=== PATIENT | female | born 1955 | race Caucasian/White ===

== ENCOUNTER 2021-04-04 10:44 | Emergency (ER) | payer BC, SELFPAY ==
--- NOTE | ~2021-04-04 | XR_ITS ---
EXAMINATION: XR ankle RT min 3V EXAM DATE: 04/04/2021 11:19 INDICATION: rolled ankle this morning/lateral pain. Initial encounter. TECHNIQUE: Right ankle frontal, lateral and oblique projections obtained and reviewed. There is no p rior study for comparison. FINDINGS: The right ankle mortise appears intact. There are no acute fractures or dislocations iden tified. There is no subcutaneous gas. The soft tissue is unremarkable. There are no radiopaque fo reign bodies. IMPRESSION: No acute osseous findings. Reviewed, dictated and finalized at location B. [employer] IMPRESSION: No acute osseous findings.
[2021-04-04 11:08] VITALS: BP 163/88; PULSE 86; RESP 18; TEMP 37; O2SAT 100
--- NOTE | 2021-04-04 12:17 | ED.LOWEXIN ---
HPI - Extremity Injury (Lower) General Chief Complaint: Extremity Injury, Lower Stated Complaint: Rt ankle paind due to fall Time Seen by Provider: 04/04/21 12:17 Source: patient Mode of arrival: ambulatory Limitations: no limitations History of Present Illness HPI Narrative: Marley Babb is a 65 yo female with no PMH [facility] ankle during playing pickle ball this morning her right ankle is mildly swollen on the lateral side with small amount of ecchymosis and she has difficulty walking on it without pain. Related Data Allergies Allergy/AdvReac Type Severity Reaction Status Date / Time Penicillins Allergy Unknown Verified 01/02/19 14:01 Review of Systems Review of Systems: CONSTITUTIONAL: Denies fever, chills, sweats. EYES: Denies visual changes, redness, discharge. ENT: Denies rhinorrhea, congestion, sore throat, otalgia. CARDIOVASCULAR: Denies chest pain, palpitations, edema. RESPIRATORY: Denies dyspnea, wheezing, cough GASTROINTESTINAL: Denies abdominal pain, nausea, vomiting, diarrhea. GENITOURINARY: Denies dysuria, hematuria, abnormal discharge SKIN: Denies rash or itching. NEUROLOGIC: Denies numbness, or focal weakness. PSYCHIATRIC: Denies anxiety or depression. Right ankle lateral swelling from rolling it playing pickle ball PMFSH Past Medical History Medical History No acute medical problems Family History Family History Other High cholesterol Hypertension Social History Social History (Updated 04/04/21 @ 12:20 by Vidya Mosqueda CNP) Smoking status: Never smoker Alcohol intake: current Comments At time of signature, I agree with nursing past medical, surgical, social and family history. There is no relevant family history pertinent to the presenting complaint. Patient's blood pressure elevated at the time of this visit and referred back to primary care physician to recheck Exam Narrative: GENERAL: This is a well-nourished, well-developed patient, in mild distress. HEAD: normocephalic, atraumatic. EYES: Sclera clear/white. Vision is grossly intact. EARS: External ears normal, auditory canals clear and without drainage, TMs normal without perforation. Hearing grossly intact. NOSE: External nose normal without nasal discharge, nares without redness, no rhinorrhea. THROAT: Mucous membranes moist, NECK: Neck supple, CARDIOVASCULAR: Regular rate and rhythm without murmurs, gallops, or rubs. RESPIRATORY: Clear to auscultation. Breath sounds equal bilaterally. No wheezes, rales, or rhonchi. GASTROINTESTINAL: Abdomen soft, SKIN: warm, intact with no suspicious lesions or rash, good texture and turgor. NEURO: awake, alert, and oriented to person, place and time. There were no obvious focal neurologic abnormalities. Steady gait EXTREMITIES: Normal range of motion left; mild right ankle lateral swelling with mild ecchymosis on the lateral dorsum of right foot pain on varus valgus movement and movement of toes BACK: Nontender without deformity Course Course Emergency Course: Patient rolled ankle while playing pickle ball x-ray of of right ankle shows no acute fracture dislocation no subcutaneous gas, soft tissues unremarkable with no radiopaque foreign bodies Directions on RICE, has ankle brace at home that she can wear, discussed use of ibuprofen 600 mg every 6 hours as needed for pain Vital Signs Vital signs: Vital Signs Temperature 98.6 F 04/04/21 11:08 Pulse Rate 86 04/04/21 11:08 Respiratory Rate 18 04/04/21 11:08 Blood Pressure 163/88 H 04/04/21 11:08 Pulse Oximetry 100 04/04/21 11:08 Temperature 98.6 F 04/04/21 11:08 Pulse Rate 86 04/04/21 11:08 Respiratory Rate 18 04/04/21 11:08 Blood Pressure 163/88 H 04/04/21 11:08 Pulse Oximetry 100 04/04/21 11:08 MDM - Extremity Injury (Lower) Differential Diagnosis Differential
== END 2021-04-04 12:27 | disposition home or self-care (01) ==
PROVIDERS: Emergency Provider Nurse Practitioner; PCP Internal Medicine
DX: S93.401A Sprain of unspecified ligament of right ankle, initial encounter (principal); S96.911A Strain of unspecified muscle and tendon at ankle and foot level, right foot, initial encounter; X50.0XXA Overexertion from strenuous movement or load, initial encounter; Y93.69 Activity, other involving other sports and athletics played as a team or group
CPT/HCPCS: 73610; 99213; G0463

== ENCOUNTER 2022-12-26 10:08 | Emergency (ER) | payer MEDICARE, BC, SELFPAY ==
[2022-12-26 10:31] VITALS: BP 151/76; PULSE 78; RESP 16; TEMP 36.4; O2SAT 100
--- NOTE | 2022-12-26 10:33 | ED.EAR ---
HPI - Ear Problem General Chief complaint: Ear Stated complaint: Lt Ear Irritation Time Seen by Provider: 12/26/22 10:35 Source: patient Mode of arrival: ambulatory Limitations: no limitations History of Present Illness HPI Narrative: Marley is a 66-year-old female patient presenting to the clinic today with complaints of left ear discomfort. She reports she is having lot of pain last night when she was lying on her left side. States she was trying to remove some ear wax last week and may have showed some ear wax further into her ear causing some discomfort. Denies any ear drainage. Related Data Home Medications Medication Instructions Recorded Confirmed conjugated estrogens 0.625 mg/gram 1 applic topical DAILY 12/26/22 12/26/22 vaginal cream (Premarin) lisinopril 5 mg tablet 5 mg PO DAILY 12/26/22 12/26/22 Allergies Allergy/AdvReac Type Severity Reaction Status Date / Time Penicillins AdvReac Mild Hives Verified 12/26/22 10:13 Review of Systems Review of Systems: Pertinent positives per HPI. Patient denies any fever, chills, rash, headache, visual changes, dizziness, cough, shortness of breath, chest pain, palpitations, nausea, vomiting, diarrhea, constipation, abdominal pain, or any urinary issues. PMFSH Past Medical History Medical History No acute medical problems Family History Family History Other High cholesterol Hypertension Social History Social History Smoking status: Never smoker Alcohol intake: current Comments At the time of my signature, I reviewed and agree with the nursing past medical, surgical, social, and family history. There is no relevant family history pertinent to the patient complaint. Exam Narrative: General: Well-developed, well nourished, in no apparent distress Head: Normocephalic, atraumatic Eyes: Pupils equally round and reactive to light bilaterally, EOM intact, sclera and conjunctive clear, no discharge, lids normal Ears: Cerumen impaction to the left ear canal, ear irrigation was performed and cerumen was removed using a lighted curette towards the end of the ear canal, TMs intact and clear, ear canals clear, no drainage, grossly hearing normal. Nose: Nares patent, no discharge, no inflammation, no sinus tenderness. Mouth: Oral pharynx without lesions or masses, good dentition, MMM. Neck: Supple, trachea midline, no enlargement of anterior or posterior cervical nodes, no thyroid masses or goiter palpable. Cardio: Regular rate and rhythm, s1 and s2 normal, no murmur appreciated. Resp: Clear to auscultation bilaterally, no rhonchi, rales, wheezing or rubs Course Course Emergency Course: Portions of this record may have been created with voice recognition software. Level of Care: Express Care Visit Vital Signs Vital signs: Vital Signs Temperature 36.4 C 12/26/22 10:31 Pulse Rate 78 12/26/22 10:31 Respiratory Rate 16 12/26/22 10:31 Blood Pressure 151/76 H 12/26/22 10:31 Pulse Oximetry 100 12/26/22 10:31 Oxygen Delivery Room Air 12/26/22 10:31 Temperature 36.4 C 12/26/22 10:31 Pulse Rate 78 12/26/22 10:31 Respiratory Rate 16 12/26/22 10:31 Blood Pressure 151/76 H 12/26/22 10:31 Pulse Oximetry 100 12/26/22 10:31 Oxygen Delivery Room Air 12/26/22 10:31 Vital signs reviewed Procedures Ear Wax Removal Left Ear: Ear Wax Removal Date: 12/26/22 Cerumenolytic Used: other (Debrox) Results: Re-examined: cerumen removed completely TM Examination: TM(s) intact, normal appearance Ear Canal Exam: atraumatic Patient Tolerated Procedure: well and no complications Complications: no problems Technique: ear canal irrigated and ear canal curetted Additional Comments: Verbal consent
[2022-12-26] MEDS: CARBAMIDE PEROXIDE 6.5% OT SOLN 15 ML BTL 10 DROP LEFT EAR (10:38)
== END 2022-12-26 11:16 | disposition home or self-care (01) ==
PROVIDERS: Emergency Provider Nurse Practitioner Family; PCP Internal Medicine
DX: H61.22 Impacted cerumen, left ear (principal); I10 Essential (primary) hypertension; K21.9 Gastro-esophageal reflux disease without esophagitis
CPT/HCPCS: 69210; 99212; A9270; G0463

== ENCOUNTER 2024-04-24 16:12 | Emergency (ER) | payer MEDICARE, BC, SELFPAY ==
[2024-04-24 16:35] VITALS: BP 140/66; PULSE 68; RESP 16; TEMP 36.3; O2SAT 100
--- NOTE | 2024-04-24 16:58 | ED.EAR ---
HPI - Ear Problem General Chief complaint: Ear Stated complaint: ear pain Time Seen by Provider: 04/24/24 16:58 Source: patient, RN notes reviewed and old records reviewed Mode of arrival: ambulatory Limitations: no limitations History of Present Illness HPI Narrative: patient presents with complaints of left ear fullness that has been present since this afternoon. She denies any injury or trauma. She reports that symptoms began suddenly this afternoon after sneezing. She denies any actual pain. She has not been taken anything for her symptoms. She voices no other concerns or complaints at this time Related Data Home Medications ?Medication ?Instructions ?Recorded ?Confirmed ?Last Taken ?Type conjugated estrogens 0.625 mg/gram 1 applic topical DAILY 12/26/22 12/26/22 Unknown History vaginal cream (Premarin) lisinopril 5 mg tablet 5 mg PO DAILY 12/26/22 12/26/22 Unknown History Allergies Allergy/AdvReac Type Severity Reaction Status Date / Time Penicillins AdvReac Mild Hives Verified 04/24/24 17:07 Review of Systems Review of Systems: All systems reviewed & are unremarkable except as noted in HPI and below Constitutional: Constitutional: Reports no additional constitutional complaints ENT: Reports system reviewed and no additional complaints, except as documented, Reports as per HPI and Reports otalgia Cardiovascular: Cardiovascular: Reports no additional cardiovascular complaints Respiratory: Respiratory: Reports no additional respiratory complaints Gastrointestinal: Gastrointestinal: Reports no additional gastrointestinal complaints [facility] Past Medical History Medical History No acute medical problems Family History Family History Other High cholesterol Hypertension Social History Social History Smoking status: Never smoker Alcohol intake: current Comments At the time of my signature, I reviewed and agree with the nursing past medical, surgical, social, and family history. There is no relevant family history pertinent to the patient complaint. Exam Const: General: cooperative, no acute distress, alert and awake Orientation/consciousness: oriented to person, oriented to place and oriented to time HENMT: Head: normal to inspection Ears: Abnormal EAC present cerumen impaction on the left and unable to visualize TM on the left Resp: Effort & Inspection: normal respiratory effort and able to speak in complete sentences Auscultation: clear to auscultation bilaterally, no crackles, no rales, no rhonchi and no wheezes Cardio: Palpation: normal PMI Rate: regular rate Rhythm: regular rhythm Heart sounds: S1 normal heart sound present and S2 normal heart sound present Neuro: General: oriented to person, oriented to place and oriented to time Cranial nerves: Yes CN's II-XII intact bilaterally Psych: Appearance: grossly normal Thought process: Normal thought process present Insight: Good insight present (Psych) Judgement: Good judgement present (Psych) Course Course Level of Care: Express Care Visit Vital Signs Vital signs: Vital Signs Temperature 97.4 F L 04/24/24 16:35 Pulse Rate 68 04/24/24 16:35 Respiratory Rate 16 04/24/24 16:35 Blood Pressure 140/66 04/24/24 16:35 Pulse Oximetry 100 04/24/24 16:35 Oxygen Delivery Room Air 04/24/24 16:35 Temperature 97.4 F L 04/24/24 16:35 Pulse Rate 68 04/24/24 16:35 Respiratory Rate 16 04/24/24 16:35 Blood Pressure 140/66 04/24/24 16:35 Pulse Oximetry 100 04/24/24 16:35 Oxygen Delivery Room Air 04/24/24 16:35 Reviewed Procedures Ear Wax Removal Left Ear: Ear Wax Removal Date: 04/24/24 Ear Wax Removal Time: 17:20 Cerumenolytic Used: other Results: Re-examined: cerumen removed completely TM Examination: TM(s) intact, normal appearance Ear Canal Exam: atraumatic Patient Tolerated Procedure: well Complications: no problems Technique: ear canal irrigated and ear canal curetted Medical Decision Making MDM Narrative Medical decision making narrative: cerumen impaction nasally removed. Patient tolerated well Discharge instructions reviewed with patient, as well as provided in writing per nursing staff. The instructions also include specific and strict return/GO TO THE ER as well as f/u information. All questions have been answered, and the patient deny any further questions with discharge and discharge plan. Some parts of this dictation were generated by voice recognition software and may contain typographical and/or grammatical inaccuracies. Medical Records Medical records reviewed: Yes I reviewed the external patient's medical records. Vital Signs Vital Signs: Vital Signs Temperature 97.4 F L 04/24/24 16:35 Pulse Rate 68 04/24/24 16:35 Respiratory Rate 16 04/24/24 16:35 Blood Pressure 140/66 04/24/24 16:35 Pulse Oximetry 100 04/24/24 16:35 Oxygen Delivery Room Air 04/24/24 16:35 Temperature 97.4 F L 04/24/24 16:35 Pulse Rate 68 04/24/24 16:35 Respiratory Rate 16 04/24/24 16:35 Blood Pressure 140/66 04/24/24 16:35 Pulse Oximetry 100 04/24/24 16:35 Oxygen Delivery Room Air 04/24/24 16:35 reviewed Lab Data Lab results reviewed: Yes I reviewed the patient's lab results. Lab results narrative: reviewed Discharge Plan Discharge Clinical Impression: Cerumen impaction Qualifiers: Laterality: left Qualified Code(s): H61.22 - Impacted cerumen, left ear Patient Disposition: Home, Self-Care Condition: Stable Instructions: Antibiotic Form Additional Instructions: Feeling of fullness in your left ear should be resolved by later on this evening. In the future, you can prevent ear wax impactions by using Debrox. Follow package instructions Patient Language: Occitan Prescriptions: No Action Premarin 0.625 mg/gram cream 1 applic topical DAILY lisinopril 5 mg tablet 5 mg PO DAILY Follow-up/Referrals: Will,Radha Cole MD [Primary Care Provider] - Time of Disposition: 17:31
== END 2024-04-24 17:34 | disposition home or self-care (01) ==
PROVIDERS: Emergency Provider Nurse Practitioner Family; PCP Internal Medicine
DX: H61.22 Impacted cerumen, left ear (principal)
CPT/HCPCS: 69210; 99212; A9270; G0463

== ENCOUNTER 2025-02-16 09:56 | Emergency (ER) | payer MEDICARE, BC, SELFPAY ==
[2025-02-16 10:00] VITALS: BP 137/63; PULSE 82; RESP 16; TEMP 36.4; O2SAT 100
[2025-02-16 10:31] LABS: EDSTREPNEGPOS1 Negative (Negative)
[2025-02-16 10:54] LABS: EDCOVIDSCREEN Negative (Negative)
--- NOTE | 2025-02-16 11:03 | ED.GENADULT ---
HPI - General Adult General Chief complaint: Upper Respiratory Infection Stated complaint: Sore throat Source: patient Mode of arrival: ambulatory Limitations: no limitations History of Present Illness HPI narrative: Patient presents for evaluation sick symptoms for last 3 days. She reports a runny nose and sinus congestion. She now has a sore throat. No fever, chills, nausea, vomiting diarrhea cough, shortness of breath. No recent sick contacts. She does not smoke. She is not taking any medication [id number] to assist with her symptoms. Related Data Home Medications ?Medication ?Instructions ?Recorded ?Confirmed ?Last Taken ?Type conjugated estrogens 0.625 mg/gram 1 applic topical DAILY 12/26/22 02/16/25 Unknown History vaginal cream (Premarin) lisinopril 5 mg tablet 5 mg PO DAILY 12/26/22 02/16/25 Unknown History rizatriptan 10 mg tablet mg 02/16/25 Unknown History Allergies Allergy/AdvReac Type Severity Reaction Status Date / Time Penicillins AdvReac Mild Hives Verified 02/16/25 10:00 Review of Systems Review of Systems: CONSTITUTIONAL: Denies fever, chills, or sweats. EYES: Denies visual changes, redness, or discharge. ENT: Reports sinus congestion, runny nose and sore throat. Denies otalgia CARDIOVASCULAR: Denies chest pain, palpitations, or edema. RESPIRATORY: Denies cough or dyspnea. GASTROINTESTINAL: Denies abdominal pain, nausea, vomiting, or diarrhea. GENITOURINARY: Denies dysuria or hematuria. SKIN: Denies rash or itching. MUSCULOSKELETAL: Denies back pain, joint pain, or myalgia. NEUROLOGIC: Denies headache, numbness, dizziness, or weakness. PSYCHIATRIC: Denies anxiety or depression. [facility] Past Medical History Medical History No acute medical problems Surgical History Surgical History No pertinent past surgical history Family History Family History Other High cholesterol Hypertension Social History Social History (Reviewed 02/16/25 @ 11:05 by Mayito L.E. Alma, POST TRONIC MACHINE OPERATOR, DATA MIGRATION LEAD) Smoking status: Never smoker Alcohol intake: current Exam Narrative: GENERAL: Well-appearing, well-nourished, and in no acute distress. HEAD: Normocephalic, atraumatic. EYES: PERRLA and EOMI. ENT: Nares clear, no rhinorrhea or epistaxis. Mucous membranes moist. Oropharynx without tonsillar hypertrophy exudate or other lesions. Bilateral TMs pearly harrell nonbulging NECK: Supple. No adenopathy or masses. No carotid bruits or JVD CHEST: Clear to auscultation. No respiratory distress. No wheezes rales or rhonchi HEART: Regular rate and rhythm. No murmur heard. Normal peripheral pulses. ABDOMEN: Soft, nontender, nondistended, normal active bowel sounds. EXTREMITIES: Normal range of motion. No edema. SKIN: Warm, dry, no rash. NEURO: No focal deficits. Alert and oriented x3. PSYCH: Normal mood and affect. Course Course Emergency Course: This is a 69 year old female who presented for evaluation of sick symptoms. Strep and COVID negative. Will send throat culture. Exam consistent with acute viral syndrome. Increase hydration. [id number] agents for symptom management. Follow up with primary provider. Go to the ER for worsening symptoms. Patient in agreement with plan of care. Level of Care: Express Care Visit Vital Signs Vital signs: Vital Signs Temperature 36.4 C L 02/16/25 10:00 Pulse Rate 82 02/16/25 10:00 Respiratory Rate 16 02/16/25 10:00 Blood Pressure 137/63 02/16/25 10:00 Pulse Oximetry 100 02/16/25 10:00 Oxygen Delivery Room Air 02/16/25 10:00 Temperature 36.4 C L 02/16/25 10:00 Pulse Rate 82 02/16/25 10:00 Respiratory Rate 16 02/16/25 10:00 Blood Pressure 137/63 02/16/25 10:00 Pulse Oximetry 100 02/16/25 10:00 Oxygen Delivery Room Air 02/16/25 10:00 Medical Decision Making Vital Signs Vital Signs: Vital Signs Temperature 36.4 C L 02/16/25 10:00 Pulse Rate 82 02/16/25 10:00 Respiratory Rate 16 02/16/25 10:00 Blood Pressure 137/63 02/16/25 10:00 Pulse Oximetry 100 02/16/25 10:00 Oxygen Delivery Room Air 02/16/25 10:00 Temperature 36.4 C L 02/16/25 10:00 Pulse Rate 82 02/16/25 10:00 Respiratory Rate 16 02/16/25 10:00 Blood Pressure 137/63 02/16/25 10:00 Pulse Oximetry 100 02/16/25 10:00 Oxygen Delivery Room Air 02/16/25 10:00 Lab Data Labs: Lab Results 02/16/25 Range/Units 10:07 POC SARS CoV-2 Ag Negative (Negative) POC Grp A Strep Screen Negative (Negative) Discharge Plan Discharge Clinical Impression: Acute viral syndrome Patient Disposition: Home Condition: Stable Instructions: Antibiotic Form, Viral Syndrome (ED) Additional Instructions: SUDAFED AND FLONASE SHOULD HELP WITH SINUS CONGESTION INCREASE WATER INTAKE CEPACOL LOZENGES MAY HELP WITH SORE THROAT Patient Language: Bengali Prescriptions: No Action Premarin 0.625 mg/gram cream 1 applic topical DAILY lisinopril 5 mg tablet 5 mg PO DAILY rizatriptan 10 mg tablet Follow-up/Referrals: Will,Radha Cole MD [Primary Care Provider, Internal Medicine] Time of Disposition: 10:55
--- OUTSIDE RECORDS SUMMARY | 2025-02-16 11:05 | XMS_ITS | Encounter Summary ---
Author Organization [facility] Address [address] [place] [id number] Care Team Providers Care Hydrometeorological Technician Name Role Phone Gerry Lara DO Primary Care Provider Radha Solis MD Primary Care Provider [phone] Encounter Details Date Type Department Care Team (Latest Contact Info) Description 02/26/2018 Abstract [facility] , Melissa Ryder MD Social History Tobacco Use Types Packs/Day Years Used Date Smoking Tobacco: Never Assessed Comments Unknown Sex and Gender Information Value Date Recorded Sex Assigned at Not on file Legal Sex Female 6:03 PM CDT Gender Identity Not on file Sexual Orientation Not on file documented as of this encounter Plan of Treatment Upcoming Encounters Date Type Department Care Team (Late st Contact Info) Description 02/27/2025 3:00 PM HISTORICAL MANUSCRIPTS CURATOR Appointment [facility] [address] [place], [place] [id number] Radha Solis MD [facility] [address] [id number] documented as of this encounter Visit Diagnoses Not on filedocumented in this encounter Care Teams Hydrometeorological Technician Relationship Specialty Start Date End Date Gerry Lara DO PCP - General 09/06/15 09/16/20 Radha Solis MD PCP - General INTERNAL MEDICINE 09/17/20 documented as of this encounter
--- OUTSIDE RECORDS SUMMARY | 2025-02-16 11:05 | XMS_ITS | Clinical Summary ---
Author Organization [facility] System Address [address] [place] [address] Care Team Providers Care Channel Manager Name Role Phone Leona Solis MD Primary Care Provider [phone] Allergies Active Allergy Reactions Criticality Noted Date Comments Penicillins Unknown 09/19/2012 Medications conjugated estrogens (PREMARIN) 0.625 MG/GM vaginal cream Place 1 Application vaginally once a week. 5 Active rizatriptan 10 MG tablet 7 Active vitamin D2, ergocalciferol, 32111 UNITS capsule Take 1 capsule by mouth once a week. 6 Active Active Problems Problem Noted Date Diagnosed Date Functional diarrhea 09/24/2018 Other fatigue 09/24/2018 Cerumen impaction 11/03/2015 Lymphadenitis 11/03/2015 MVP (mitral valve prolapse) 09/16/2013 Overview (09/23/2018): Description: on Echo 09/19/88 Migraine headache 07/30/2013 Viral warts 07/30/2013 Vitamin D deficiency 07/30/2013 Mammogram abnormal 02/24/2013 Elevated blood pressure read ing without diagnosis of hypertension 11/18/2012 Osteoporosis 11/18/2012 Pain in joint of left hip 09/19/2012 Resolved Problems Problem Noted Date Diagnosed Date Resolved Date Encounter for preventive health examination 09/17/2012 01/02/2020 Immunizations Immunization Administration Dates Next Due Td (Decavac) 04/23/2009 Family History Medical History Relation Comments brain cancer Father Ovarian Cancer Mother Hypertension Other IA Other Relation Status Comments Father Mother Other Social History Tobacco Use Types Packs/Day Years Used Date Smoking Tobacco: Never Smokeless Tobacco: Never Alcohol Use Standard Drinks/Week Comments Yes 0 (1 standard drink = 0.6 oz pur e alcohol) social Comments Unknown Sex and Gender Information Value Date Recorded Sex Assigned at Not on file Legal Sex Female 6:03 PM CDT Gender Identity Not on file Sexual Orientation Not on file Last Filed Vital Signs Vital Sign Reading Time Taken Comments Blood Pressure 126/88 04/09/2019 3:07 PM [employer] Pulse 68 04/03/2018 10:09 AM [employer] Temperature 37.1 C (98.8 F) 04/09/2019 3:07 PM [employer] Respiratory Rate - - Oxygen Saturation - - Inhaled Oxygen Concentration - - Weight 59.4 kg (131 lb) 09/24/2018 11:08 AM CDT Height 166.4 cm (5' 5.5) 04/03/2018 10:09 AM CS T Body Mass Index 21.47 04/03/2018 10:09 AM [employer] Plan of Treatment Upcoming Encounters Date Type Department Care Team (Late st Contact Info) Description 02/27/2025 3:00 PM [employer] [facility]ment [facility] [place] [id number] Leona Solis MD [address] [place] [phone] Health Maintenance Due Date Last Done Comments Colorectal Cancer Screening Colonoscopy (10 Years) 1956 Hepatitis C 1974 Zoster Vaccines (1 of 2) 2006 DTaP, Tdap and Td Vaccines (1 - Tdap) 04/24/2009 04/23/2009 RSV Immunization or 60+ Years (1 - Risk 60-74 years 1-dose series) 2016 Annual Medicare Wellness Visit 2021 COVID-19 Vaccine (3 - 2024- season) 2024 02/14/2021, 07/14/2020 Influenza Adult (#1) 2025 Mammogram Screening 01/22/2026 01/23/2024, 11/28/2022, 11/22/2021, Additional history exists Pneumococcal Vaccine: 50+ Years Completed 09/19/2022 Dexa Scan (General) Completed 11/17/2022, 11/17/2022, 10/30/2019 Hepatitis A Vaccines Aged Out No long er eligible based on patient's age to complete this topic Meningococcal B Vaccine Aged Out No l onger eligible based on patient's age to complete this topic Meningococcal Vaccine Aged Out No ewelina gigi eligible based on patient's age to complete this topic RSV Immunizations Under 20 Months Aged Out No longer eligible based on patient's age to complete this topic Procedures Procedure Name Priority Date/Time Associated Diagnosis Comments MG SCREENING W CRISTÓBAL BECKA DIGI Routine 01/23/2024 9:20 AM CDT Encounter for screening mammogram for malignant neoplasm of breast from Last 3 Months or Most Recently Relevant to Health Maintenance Results * MG SCREENING W CRISTÓBAL BECKA DIGI (01/23/2024 9:20 AM CDT) Anatomical Region Laterality Modality Breast Bilateral Mammography 01/23/2024 9:56 AM CDT Impressions 01/23/2024 9:57 AM CDT ===== IMPRESSION: ===== 1. Stable mammographic appearance with no new findings to suggest malignancy in either breast. Assessment: ACR BI-RADS 2 - BENIGN FINDING(S) Recommendation: 1:Routine Screening Bilateral Comments: Ordered By: LEONA SOLIS Interpreted By: Basilio Gleason MD, 01/23/2024 9:56 AM Narrative 01/23/2024 9:[address] [facility] [address] [place] [address] Examination: Digital bilateral screening mammogram with 3D Tomosynthesis Exam Date/Time: 01/23/2024 9:11 AM Reason For Exam: ANNUAL No prior breast procedures. No personal or family history of breast cancer. No current complaints. Comparison: Mammograms from 11/28/2022 11/22/202110/0410/04/2020 Technique: Digital screening mammography of both breasts was performed in addition to 3-D Tomosynthesis technique. This study was read with the assistance of a computer-aided detection system. Tissue density: The breasts are extremely dense, which lowers the sensitivity of mammography. Findings: Benign vascular and punctate calcifications bilaterally. Overall parenchymal pattern unchanged from prior studies. There is no new focal asymmetry, dominant mass lesion, area of skin thickening, or cluster of suspicious appearing calcifications in either breast to suggest malignancy. us Leona Solis MD MAMMO Final Resu lt from Last 3 Months or Most Recently Relevant to [place] [address] [facility] Member Subscriber Plan / Payer (Ef fective 2015-Present) Name:Marley Kearney Relation to Subscriber:Spouse Name:CHIN KEARNEY Date of :1948 (Home) Address: [address] [place] [address] [place] [address] Payer ID:Not on file Group ID:[id number] Type:Not on file Address: [address] [place] [address] [employer] [facility] Member Subscriber Plan / Payer (Ef fective 2015-Present) Name:Marley Kearney Relation to Subscriber:Spouse Name:CHIN KEARNEY Date of :1948 (Home) Address: [place] [address] Payer ID:Not on file Group ID:[id number] Type:Not on file Address: [facility] [id number] [place] [address] Care Teams Channel Manager Relationship Specialty Start Date End Date Leona Solis MD PCP - General INTERNAL MEDICINE 09/17/20
--- OUTSIDE RECORDS SUMMARY | 2025-02-16 11:05 | XMS_ITS | Clinical Summary ---
Author Organization [facility] Address [address] [place] [address] Care Team Providers Care Junior Project Manager Name Role Phone Radha Solis MD Primary Care Provider Allergies Active Allergy Reactions Criticality Noted Date Comments Penicillins Unknown 09/19/2012 Medications acidophilus-pecti n, citrus 100 million cell-10 mg capsule Take by mouth Activ e vitamin B complex capsule Take 1 capsule by mouth daily Active cholecalciferol (VITAMIN D-3) 2000 unit capsule 2 capsules (4,000 Units total) Active estrogens, conjugated, (PREMARIN) vaginal cream Insert 1 g into the vagina once a week 30 g 11 2 Active lisinopriL (PRINIVIL,ZESTRIL ) 5 mg tabletIndications :Primary hypertension Take 1 tablet (5 mg total) by mouth daily 90 tablet 4 5 Active rizatriptan (MAXALT) 10 mg tablet TAKE 1 TABLET BY MOUTH DAILY NEEDED FOR MIGRAINE 9 tablet 1 5 Active Active Problems Problem Noted Date Diagnosed Date Essential hypertension 07/27/2021 Gastroesophageal reflux disease without esophagi tis 07/27/2021 Functional diarrhea 09/24/2018 Overview (10/30/2019): Colonoscopy neg 04/2019 Lymphadenitis 11/03/2015 MVP (mitral valve prolapse) 09/16/2013 Overview (10/30/2019): Description: on Echo 09/19/88 Migraine headache 07/30/2013 Vitamin D deficiency 07/30/2013 Osteoporosis without current pathological fractu re 11/18/2012 Overview (10/30/2019): Took ALN [id number] Lowest T-score fem neck in 2013 was -2.1 Assessment & Plan (10/30/2019 3:08 PM CDT): My advice is to withhold active treatment these next several years and follow the T-score especially the femoral neck. It will go down but the active Rx of ALN x 5 yrs has set up a very protective level for now and should remain effective at least a total of 5 years and in fact, I would recommend waiting EVEN LONGER if the bone mass remains preserved to the levels we see now. If the Femoral Neck eventually falls down close to or below -2.5, then I would start another round of Rx and you could easily use ALN or even consider a single dose of Reclast and watch that a while. Resolved Problems Problem Noted Date Diagnosed Date Resolved Date Adult BMI <19 kg/sq m 07/21/20192023 Other fatigue 09/24/2018 07/27/2021 Viral warts 07/30/2013 12/18/2023 Mammogram abnormal 02/24/2013 2 Elevated blood pressure read ing without diagnosis of hypertension 11/18/2012 07/27/2021 Pain in joint of left hip 09/19/2012 Immunizations Immunization Administration Dates Next Due Influenza, Quadrivalent, Hig h Dose, Preservative Free, Intrr 03/09/2022 Influenza, Unspecified 07/01/2024(Deferr ed: Patient Refused),04/24/2023(Deferred: Patient Refused),09/19/2022(Deferred: Patient Refused),07/05/2021(Deferred: Patient Refused),06/21/2021(Deferred: Patient Refused),01/22/2020(Deferred: Patient Refused),07/21/2019(Deferred: Patient Refused),01/21/2019(Deferred: Patient Refused),01/21/2018(Deferred: Patient Refused) Moderna SARS-CoV-2 Monovalen t Vaccination (12+ YRS) 02/14/2021 Pneumococcal Conjugate Pcv20 09/19/2022 TD Preservative Free 04/23/2009 Family History Medical History Relation Name Comments Cancer Father Heart disease Father Hypertension Father Ovarian cancer Mother Osteopenia Sister Relation Name Status Comments Brother Alive Father (Age 65) father pas sed away from cancer Mother (Age 42) passed lionel y from ovarian cancer Sister Alive Social History Tobacco Use Types Packs/Day Years Used Date Smoking Tobacco: Never Smokeless Tobacco: Never Alcohol Use Standard Drinks/Week Comments Yes 1 (1 standard drink = 0.6 oz pur e alcohol) socially AUDIT-C Answer Date Recorded Q1: How often do you have a drink containing alc ohol? Monthly or less 07/01/2024 Q2: How many drinks containi ng alcohol do you have on a typical day when you are drinking? 1 or 2 07/01/2024 Q3: How often do you have si x or more drinks on one occasion? Never 07/01/2024 PHQ-2 Answer Date Recorded PHQ-2 Total Score (If total score is 3 or more points, staff should administer the PHQ-9) 0 07/01/2024 Comments Unknown Sex and Gender Information Value Date Recorded Sex Assigned at Not on file Legal Sex Female 8:54 PM [employer]IE [employer]AMPER Gender Identity Female 08/01/2020 8:17 PM CDT Sexual Orientation Straight 08/01/2020 8: 17 PM CDT Obstetrics History Last Filed Vital Signs Vital Sign Reading Time Taken Comments Blood Pressure 120/64 07/01/2024 11:08 AM CDT Pulse 75 07/01/2024 11:08 AM CDT Temperature 36.5 C (97.7 F) 07/01/2024 11:08 AM CDT Respiratory Rate 18 09/22/2021 8:34 AM CDT Oxygen Saturation 98% 07/01/2024 11:08 AM CDT Inhaled Oxygen Concentration - - Weight 53.5 kg (118 lb) 07/01/2024 11:08 AM CDT Height 167.6 cm (5' 6) 07/01/2024 11:08 AM CDT Body Mass Index 19.05 07/01/2024 11:08 AM CDT Plan of Treatment Health Maintenance Due Date Last Done Comments Hepatitis B Screening 1974 Zoster Vaccine (1 of 2) 2006 DTaP/Tdap/Td Vaccine (1 - Tdap) 04/24/2009 0 Osteoporosis Screening-Bone Density Scan 11/17/2024 11/17/2022, 10/30/2019 Covid-19 Vaccine (5 - 2024-2 6 season) 2024 03/24/2021, 02/14/2021, 08/11/2020, Additional history exists Influenza Vaccine (#1) 2024 03/09/2022 Fall Risk Assessment 12/25/2024 12/26/2023, 09/19/2022, 08/03/2021 Well Visit 65+ 12/25/2024 12/26/2023, 08/23, 08/03/2021, Additional history exists Breast Cancer Screening-Mammogram 01/22/2025 01/23/2024, 01/23/2024, 01/23/2024, Additional history exists Depression Screening 07/01/2025 07/01/2024, 12/26/2023, 04/24/2023, Additional history exists Colon Cancer Screening-Colonoscopy 05/13/2028 05/13/2018 Colon Cancer Screening-CT Colonography Discontinued 05/13/2018 Colon Cancer Screening-DNA Stool Discontinued 05/13/19 19 Colon Cancer Screening-FIT Discontinued 05/13/2018 Colon Cancer Screening-Sigmoidoscopy Discontinued 05/13/2018 Hepatitis C Screening Completed 07/21/2019 Pneumococcal vaccine 65+ Completed 09/19/2022 Procedures Procedure Name Priority Date/Time Associated Diagnosis Comments MAMMOGRAPHY Routine 01/23/2024 DEXA AXIAL SKELETON BONE DENSITY 1 OR MORE SITES Schedule Routine, Read Routine (OP Routine) 11/17/2022 2:47 PM CDT Post-menopausal HEPATITIS C ANTIBODY Routine 07/21/2019 9:18 AM CDT Need for hepatitis C screening test COLONOSCOPY Routine 05/13/2018 from Last 3 Months or Most Recently Relevant to Health Maintenance Results * MAMMOGRAPHY (01/23/2024) Mammography Normal us Historical Provider HEALTH MAINTENANCE Final Result * Dexa Axial Skeleton Bone Density 1 or 2 Site (11/17/2022 2:47 PM CDT) Anatomical Region Laterality Modality Body N/A Mammography 11/18/2022 12:3 5 PM CDT Narrative 11/18/2022 12:35 PM CDT EXAM DESCRIPTION: DEXA AXIAL SKELETON BONE DENSITY 1 OR MORE SITES REASON FOR STUDY: 66 y/o year old F with given history of: post-menopausal symptoms Cotton Chopper/Model: Netac A ([id number]/N [id number]) CLINICAL INFORMATION: Current height: 66 inches Maximum height: 66 inches Weight: 119 pounds Risk factors: Postmenopausal COMPARISON: None available FINDINGS: AP LUMBAR SPINE L1-L4: Total BMD is 0.931 g/cm2 T-score is -1.1 LEFT HIP: Total BMD is 0.836 g/cm2 T-score is -0.9 Femoral neck BMD is 0.665 g/cm2 T-score is -1.7 FRAX: 10 year risk for a major osteoporotic fracture is 8.0 %, 10 year risk for a hip fracture is 1.1 % IMPRESSION: Low Bone Mass. REFERENCE: Bone mineral density: Normal (T-score above or = -1.0) Low bone mass (T-score between -1.0 and -2.5) replaces the previously used term osteopenia Osteoporosis (T-score = or below -2.5) Medical evaluation for secondary causes of low bone mineral density may be appropriate. FRAX is a World Health Organization validated fracture risk assessment tool that calculates a person's 10 year probability of a major osteoporosis related fracture and hip fracture. According to the National Osteoporosis Foundation guidelines, postmenopausal women and men age 50 or older with low bone mass and a 10 year probability of a major osteoporosis related fracture = or greater than 20% or a 10 year probability of a hip fracture = or greater than 3% should be considered for treatment. For further information, including treatment recommendations, please refer to the 2019 ISCD Official Positions (http://www.iscd.org) and the NOF's Clinician's Guide to Prevention and Treatment of Osteoporosis (http://www.nof.org/professionals/clinical-guidelines) THIS IS AN ELECTRONICALLY VERIFIED FINAL REPORT 11/18/2022 12:35 PM - Electronically signed by Liang Serrato M.D. MF: [email or web address] Report ID: [id number] Reading Location: [place] [address] Procedure Note Liang Serrato MD - 11/18/2022 EXAM DESCRIPTION: DEXA AXIAL SKELETON BONE DENSITY 1 OR MORE SITES REASON FOR STUDY: 66 y/o year old F with given history of: post-menopausal symptoms Cotton Chopper/Model: Netac A (S/N [id number]) CLINICAL INFORMATION: Current height: 66 inches Maximum height: 66 inches Weight: 119 pounds Risk factors: Postmenopausal COMPARISON: None available FINDINGS: AP LUMBAR SPINE L1-L4: Total BMD is 0.931 g/cm2 T-score is -1.1 LEFT HIP: Total BMD is 0.836 g/cm2 T-score is -0.9 Femoral neck BMD is 0.665 g/cm2 T-score is -1.7 FRAX: 10 year risk for a major osteoporotic fracture is 8.0 %, 10 year risk fora hip fracture is 1.1 % IMPRESSION: Low Bone Mass. REFERENCE: Bone mineral density: Normal (T-score above or = -1.0) Low bone mass (T-score between -1.0 and -2.5) replaces thepreviously used term osteopenia Osteoporosis (T-score = or below -2.5) Medical evaluation for secondary causes of low bone mineral density may be appropriate. FRAX is a World Health Organization validated fracture risk assessmenttool that calculates a person's 10 year probability of a major osteoporosisrelated fracture and hip fracture. According to the National OsteoporosisFoundation guidelines, postmenopausal women and men age 50 or older with low bonemass and a 10 year probability of a major osteoporosis related fracture = or greater than 20% or a 10 year probability of a hip fracture = or greaterthan 3% should be considered for treatment. For further information, including treatment recommendations, please referto the 2019 ISCD Official Positions (http://www.iscd.org) and the NOF's Clinician's Guide to Prevention and Treatment of Osteoporosis (http://www.nof.org/professionals/clinical-guidelines) THIS IS AN ELECTRONICALLY VERIFIED FINAL REPORT 11/18/2022 12:35 PM - Electronically signed by Liang Serrato M.D. MF: [email or web address] Report ID: [id number] Reading Location: [place] [address] Radha Solis MD IMG DXA PROCE DURES Final Result * Hepatitis C antibody (07/21/2019 9:18 AM CDT) Hep C Ab NONREACT NONREACTIVE [facility] Comment: Siemens CentaurXP using YANNICK (chemiluminescent immunoassay) technology. NONREACTIVE: Antibodies to Hepatitis C not detected. This does not exclude early acute Hepatitis C infection, possibility of exposure to Hepatitis C, antibodies below detection limit, or to lack of antibody reactivity to the antigen used in this assay. EQUIVOCAL: Antibodies to Hepatitis C may or may not be present. Sample to be confirmed by real-time PCR method. REACTIVE: Antibodies to Hepatitis C detected.Sample to be confirmed by real-time PCR method. Blood specimen (specimen) 07/21/2019 9:18 AM CDT 07/21/2019 9:42 AM CDT Narrative Resulting Agency Comment CLI Radha Solis MD LAB M ICROBIOLOGY - GENERAL ORDERABLES Final Result [address] [phone] * Colonoscopy (05/13/2018) Anatomical Region Laterality Modality Other 05/13/2018 Historical Provider ENDOSCOPY PROCEDURES Diana l Result from Last 3 Months or Most Recently Relevant to Health Maintenance Insurance [facility] MEDICARE [facility] MEDICARE [employer] [facility]IC[facility] Member Subscriber Plan / Payer ( fective 2024-Present) Name:Marley Kearney Relation to Subscriber:Spouse Name:CHIN KEARNEY Date of :1948 Address: [address] [place] [address] Payer ID:[id number] (NAIC) Group ID:[id number] Type: [employer] Address: [address] [place] [address] Care Teams Junior Project Manager Relationship Specialty Start Date End Date Radha Solis MD PCP - General Internal Medicine 01/09/19
== END 2025-02-16 10:57 | disposition home or self-care (01) ==
PROVIDERS: Emergency Provider Nurse Practitioner; PCP Internal Medicine
DX: B34.9 Viral infection, unspecified (principal); Z20.822 Contact with and (suspected) exposure to COVID-19
CPT/HCPCS: 87081; 87426; 87880; 99213; G0463